=== PATIENT | male | born 1945 | race Two or more races ===

== ENCOUNTER 2021-01-12 05:59 | Day surgery (SDC) | payer OTHER ==
[2021-01-12] MEDS ORDERED: EPINEPHrine/PF 1 MG/1 ML (1:1,000) AMPULE ONE (07:08)
[2021-01-12] MEDS ORDERED: POVIDONE-IODINE 5% OPHTHALMIC PREP 30 ML SOLUTION ONE (07:09)
[2021-01-12] MEDS ORDERED: MIDAZOLAM HCL 2 MG/2 ML SINGLE DOSE VIAL ONE (07:09)
[2021-01-12] MEDS ORDERED: ACETYLCHOLINE 1:100 INTRA-OCUL 20 MG/2 ML KIT ONE (07:09)
[2021-01-12] MEDS ORDERED: TETRACAINE 0.5% OPHTH SOLN 2 ML BOTTLE ONE (07:09)
[2021-01-12] MEDS ORDERED: TRYPAN BLUE 0.5 ML DISP.SYRIN ONE (07:09)
[2021-01-12] MEDS ORDERED: EPI-SHUGARCAINE (EPINEPHRINE 0.025% & LIDOCAINE-PF 0.75%) 4ML ONE (07:09)
[2021-01-12] MEDS: PHENYLEPHRINE 2.5% OPHTH SOLN 15 ML BOTTLE ONE ×3 (07:10→07:20)
[2021-01-12] MEDS: TROPICAMIDE 1% OPHTH SOLN 15 ML BOTTLE ONE ×3 (07:10→07:20)
[2021-01-12] MEDS: CYCLOPENTOLATE 2% OPHTH SOLN 2 ML BOTTLE ONE ×3 (07:10→07:20)
[2021-01-12] MEDS: CIPROFLOXACIN 0.3% EYE DROPS 5 ML BOTTLE ONE ×3 (07:10→07:20)
== END 2021-01-12 09:15 | disposition home or self-care (01) ==
LOC: FASU 05:59
PROVIDERS: ATTEND Ophthalmology
PROC: 08RJ3JZ Replacement of Right Lens with Synthetic Substitute, Percutaneous Approach (ICD-10-PCS; principal; 2021-01-12 07:46)
DX: H25.21 Age-related cataract, morgagnian type, right eye (principal)

== ENCOUNTER 2021-03-16 06:15 | Day surgery (SDC) | payer OTHER ==
[2021-03-05 12:07] VITALS: BMI 25.8
[2021-03-16] MEDS: CIPROFLOXACIN 0.3% EYE DROPS 5 ML BOTTLE ONE ×3 (07:10→07:20)
[2021-03-16] MEDS: PHENYLEPHRINE 2.5% OPHTH SOLN 15 ML BOTTLE ONE ×3 (07:10→07:20)
[2021-03-16] MEDS: TROPICAMIDE 1% OPHTH SOLN 15 ML BOTTLE ONE ×3 (07:10→07:20)
[2021-03-16] MEDS: CYCLOPENTOLATE 2% OPHTH SOLN 2 ML BOTTLE ONE ×3 (07:10→07:20)
[2021-03-16] MEDS ORDERED: POVIDONE-IODINE 5% OPHTHALMIC PREP 30 ML SOLUTION ONE (07:11)
[2021-03-16] MEDS ORDERED: ACETYLCHOLINE 1:100 INTRA-OCUL 20 MG/2 ML KIT ONE (07:11)
[2021-03-16] MEDS ORDERED: TETRACAINE 0.5% OPHTH SOLN 2 ML BOTTLE ONE (07:11)
[2021-03-16] MEDS ORDERED: EPI-SHUGARCAINE (EPINEPHRINE 0.025% & LIDOCAINE-PF 0.75%) 4ML ONE (07:11)
[2021-03-16 07:16] VITALS: PULSE 62
[2021-03-16] MEDS ORDERED: MIDAZOLAM HCL 2 MG/2 ML SINGLE DOSE VIAL ONE (08:07)
[2021-03-16 09:14] VITALS: TEMP 97.4
[2021-03-16 09:48] VITALS: BP 142/78
== END 2021-03-16 09:40 | disposition home or self-care (01) ==
LOC: FASU 06:15
PROVIDERS: ATTEND Ophthalmology
PROC: 08RK3JZ Replacement of Left Lens with Synthetic Substitute, Percutaneous Approach (ICD-10-PCS; principal; 2021-03-16 08:31)
DX: H25.12 Age-related nuclear cataract, left eye (principal)

== ENCOUNTER 2024-01-25 05:50 | Day surgery (SDC) | payer OTHER ==
[2024-01-20 10:50] VITALS: BMI 26.8
[2024-01-25] MEDS ORDERED: FENTANYL CITRATE/PF 50 MCG/ML VIAL ONE (07:33)
[2024-01-25] MEDS ORDERED: MIDAZOLAM HCL 2 MG/2 ML SINGLE DOSE VIAL ONE (07:33)
[2024-01-25] MEDS ORDERED: BUPIVACAINE LIPOSOME/PF (EXPAREL) 266 MG/20 ML VIAL ONE (07:33)
[2024-01-25] MEDS ORDERED: BUPIVACAINE HCL/PF 0.5% (5MG/ML) 10 ML VIAL ONE (07:34)
[2024-01-25] MEDS ORDERED: TRANEXAMIC ACID 1000 MG/10 ML VIAL ONE ×2 (08:10→09:04)
[2024-01-25] MEDS ORDERED: ceFAZolin SODIUM 1 GM VIAL ONE (08:10)
[2024-01-25] MEDS ORDERED: PROPOFOL 20 ML ONE ×2 (08:12→09:05)
[2024-01-25] MEDS ORDERED: ONDANSETRON 4 MG/2 ML VIAL ONE (08:16)
[2024-01-25] MEDS ORDERED: DEXAMETHASONE SOD PHOSPHATE 4 MG/1 ML VIAL ONE (08:16)
[2024-01-25] MEDS ORDERED: oxyCODONE HCL 5 MG TABLET PO PRN ×3 (10:03→10:16)
[2024-01-25] MEDS ORDERED: MAGNESIUM HYDROX 2400MG/30ML ORAL SUSPENSION 30 ML CUP PO PRN (10:03)
[2024-01-25] MEDS ORDERED: ONDANSETRON 4 MG/2 ML VIAL IVPUSH PRN ×2 (10:03→10:12)
[2024-01-25] MEDS ORDERED: MAG HYDROX/AL HYDROX/SIMETH 30 ML UNIT-DOSE CUP PO PRN (10:03)
[2024-01-25] MEDS: ACETAMINOPHEN 1000 MG/100 ML BAG IVPB ONE (10:23)
[2024-01-25] MEDS: CEFAZOLIN SODIUM 2 GM in DEXTROSE 5%-WATER 100 ML IVPB SCH (16:58)
[2024-01-25] MEDS: LACTATED RINGERS SOLUTION 1,000 ML IV SCH (16:59)
[2024-01-25] MEDS: oxyCODONE HCL 5 MG TABLET PO PRN (18:53)
[2024-01-25] MEDS: ACETAMINOPHEN 1000 MG/100 ML BAG IVPB SCH (20:11)
[2024-01-25 20:37] VITALS: RESP 18
[2024-01-25] MEDS: oxyCODONE HCL 10 MG SUSTAINED ACTING TABLET PO SCH (21:49)
[2024-01-25] MEDS: TRIAMTERENE AND HCTZ - 37.5 MG/25 MG CAPSULE PO SCH (21:49)
[2024-01-25] MEDS: ASPIRIN 81 MG CHEWABLE TABLETS PO SCH (21:49)
[2024-01-25] MEDS: DOXAZOSIN MESYLATE 4 MG TABLET PO SCH (21:49)
[2024-01-25] MEDS: SENNOSIDES/DOCUSATE COMBO (SENNA PLUS) TABLET (UD) PO SCH (21:50)
[2024-01-25] MEDS: DEXAMETHASONE 4 MG TABLET (FP) PO SCH (21:50)
[2024-01-25] MEDS: FAMOTIDINE 20 MG TABLET PO SCH (21:50)
[2024-01-25] MEDS ORDERED: TRANEXAMIC ACID 1000 MG/10 ML VIAL IVPB SCH (22:00)
[2024-01-25] MEDS: TRANEXAMIC ACID - 1,000 MG in SODIUM CHLORIDE 50 ML IVPB SCH (22:26)
[2024-01-26] MEDS: CEFAZOLIN 2 GM in DEXTROSE 5%-WATER - 100 ML IVPB ONE (06:25)
[2024-01-26] MEDS: ACETAMINOPHEN 1000 MG/100 ML BAG IVPB SCH (06:25)
[2024-01-26] MEDS: MULTIVITAMINS (DAILY MVI) TABLET (FP) PO SCH (09:08)
[2024-01-26 14:44] VITALS: BP 120/70; PULSE 72; TEMP 97.3
== END 2024-01-26 15:30 | disposition home health service (06) ==
LOC: FASUSAT 05:50 → FM/S 11:01 → FASUSAT 01-26 15:30
PROVIDERS: ATTEND Orthopaedic Surgery
PROC: 0SRC0J9 Replacement of Right Knee Joint with Synthetic Substitute, Cemented, Open Approach (ICD-10-PCS; principal; 2024-01-25 08:26)
DX: M17.11 Unilateral primary osteoarthritis, right knee (principal)
CPT/HCPCS: 27447; C1776; 73560-TC-RT-FY; 94760; 97010-GP; 97116-GP; 97162-GP; J0131